=== PATIENT | male | born 1965 | race Caucasian/White ===

== ENCOUNTER 2018-04-22 07:02 | Emergency (ER) | payer BC ==
[2018-04-22 07:16] VITALS: BP 130/78
--- NOTE | 2018-04-22 07:36 | UC ---
Respiratory Complaint HPI - HPI Summary HPI Summary: dry cough x 5 days + nasal congestion, pnd, no fever, + chills, + wheezing, worse at nights , no sore throat, no sinus pain - History of Current Complaint Chief Complaint: UCRespiratory Stated Complaint: FLU SYMPTOMS Time Seen by Provider: 04/22/18 07:19 Hx Obtained From: Patient Onset/Duration: Gradual Onset, Lasting Days - 5, Still Present Timing: Constant Severity Initially: Moderate Severity Currently: Moderate Pain Intensity: 0 Pain Scale Used: 0-10 Numeric Character: Cough: Nonproductive Aggravating Factors: Exertion, Deep Breaths Alleviating Factors: Nothing Associated Signs And Symptoms: Positive: Chills, Wheezing, URI, Nasal Congestion. Negative: Dyspnea, Fever, Dizziness, Calf Pain, Calf Swelling, Sinus Discomfort - Allergies/Home Medications Allergies/Adverse Reactions: Allergies Allergy/AdvReac Type Severity Reaction Status Date / Time No Known Allergies Allergy Verified 04/22/18 07:09 Home Medications: Home Medications [id number] Es (Nf) [Excedrin Extra Strength 250-250-65 mg (NF)] 2 tab PO ONCE PRN 04/22/18 [History Confirmed 04/22/18] Phenol/Glycerin [Chloraseptic Max Sore Thr] 1 spr MT ONCE PRN 04/22/18 [History Confirmed 04/22/18] PMH/Surg Hx/FS Hx/Imm Hx Cardiovascular History: Hypertension - Surgical History Surgical History: Yes Surgery Procedure, Year, and Place: Hernia Repair. Cyst Removed from Chest - Family History Known Family History: Positive: Hypertension - Social History Alcohol Use: Occasionally Substance Use Type: None Smoking Status (MU): Former Smoker When Did the Patient Quit Smoking/Using Tobacco: 1983 Review of Systems Constitutional: Negative Skin: Negative Eyes: Negative ENT: Nasal Discharge Respiratory: Cough Is Patient Immunocompromised?: No All Other Systems Reviewed And Are Negative: Yes Physical Exam Triage Information Reviewed: Yes Appearance: Well-Appearing, No Pain Distress, Well-Nourished Vital Signs: Initial Vital Signs Temp 98.1 F 04/22/18 07:10 Pulse 59 04/22/18 07:10 Resp 16 04/22/18 07:10 BP 130/78 04/22/18 07:10 Pulse Ox 100 04/22/18 07:10 Vital Signs Reviewed: Yes Eyes: Positive: Conjunctiva Clear ENT: Positive: Normal ENT inspection, Hearing grossly normal, Pharynx normal, Nasal congestion Neck: Positive: Supple, Nontender, No Lymphadenopathy Respiratory: Positive: Chest non-tender, Lungs clear, Normal breath sounds Cardiovascular: Positive: RRR, No Murmur, Pulses Normal Abdominal Exam: Normal UC Diagnostic Evaluation - Laboratory O2 Sat by Pulse Oximetry: 100 Respiratory Course/Dx - Differential Dx/Diagnosis Provider Diagnoses: Viral Bronchitis Discharge - Sign-Out/Discharge Documenting (check all that apply): Discharge/Admit/Transfer - Discharge Plan Condition: Stable Disposition: HOME Prescriptions: Codeine Phosphate/Guaifenesin [Cheratussin AC] 10 ml PO Q8H PRN #120 ml MDD 30 ml PRN Reason: Cough Patient Education Materials: Acute Bronchitis (ED) Forms: *Work Release Referrals: Charlie Garcia MD [Primary Care Provider] - If Needed - Billing Disposition and Condition Condition: STABLE Disposition: Home
== END 2018-04-22 07:31 | disposition home or self-care (01) ==
LOC: UCCORT 07:02
DX: J20.8 Acute bronchitis due to other specified organisms (principal); I10 Essential (primary) hypertension; Z87.891 Personal history of nicotine dependence
CPT/HCPCS: 99212; G0463

== ENCOUNTER 2019-08-29 15:09 | Emergency (ER) | payer BC ==
[2019-08-29 15:47] VITALS: BP 142/93
--- NOTE | 2019-08-29 16:05 | UC ---
Skin Complaint HPI - HPI Summary HPI Summary: Patient is a 54-year-old male presenting with for left knee pain that began 6 days ago. States pain gradually progressed throughout the week and for the past 2 days he has noticed it has become swollen. Patient notes redness around the knee that has been spreading superiorly and inferiorly from the knee since this morning. He also notes swelling and pitting of his calf. Notes pain with flexion, extension, and ambulation. Rates 7/10. Patient states he is concern for infection but denies any trauma or injury to the knee. Denies anything like this in the past. Denies fevers but notes chills yesterday and today. Denies n/v. States he has been elevating and icing without relief. - History of Current Complaint Chief Complaint: UCLowerExtremity Stated Complaint: LT KNEE COMPLAINT Hx Obtained From: Patient, Family/[place] [place] [facility]s - Onset/Duration: Gradual Onset, Lasting Days Current Severity: Moderate Pain Intensity: 7 Pain Scale Used: 0-10 Numeric - Allergy/Home Medications Allergies/Adverse Reactions: Allergies Allergy/AdvReac Type Severity Reaction Status Date / Time No Known Allergies Allergy Verified 08/29/19 15:47 PMH/Surg Hx/FS Hx/Imm Hx Previously Healthy: Yes - Surgical History Surgical History: Yes Surgery Procedure, Year, and Place: Hernia Repair. Cyst Removed from Chest - Family History Known Family History: Positive: Hypertension, Non-Contributory - Social History Occupation: Employed Full-time Lives: With Family Alcohol Use: Occasionally Substance Use Type: None Smoking Status (MU): Former Smoker When Did the Patient Quit Smoking/Using Tobacco: 1983 Review of Systems All Other Systems Reviewed And Are Negative: Yes Constitutional: Positive: Chills. Negative: Fever Skin: Positive: Other - redness over anterior L knee Respiratory: Positive: Negative Cardiovascular: Positive: Negative Gastrointestinal: Positive: Negative. Negative: Vomiting, Nausea Musculoskeletal: Positive: Arthralgia - L knee, Edema - L knee. Negative: Calf Tenderness, Decreased ROM Neurological: Negative: Weakness, Paresthesia, Numbness Physical Exam Triage Information Reviewed: Yes Appearance: Well-Appearing, Well-Nourished, Pain Distress Vital Signs: Initial Vital Signs Temp 99.8 F 08/29/19 15:43 Pulse 74 08/29/19 15:43 Resp 16 08/29/19 15:43 BP 142/93 08/29/19 15:43 Pulse Ox 100 08/29/19 15:43 Vital Signs Reviewed: Yes Eyes: Positive: Conjunctiva Clear ENT: Positive: Hearing grossly normal Neck: Positive: Supple Respiratory Exam: Normal Respiratory: Positive: Lungs clear, Normal breath sounds, No respiratory distress Cardiovascular Exam: Normal Cardiovascular: Positive: RRR, Pulses Normal - normal pedal pulses b/l. normal popliteal pulses, Brisk Capillary Refill. Negative: Tachycardia Musculoskeletal: Positive: Strength Intact, ROM Limited @ - knee flexion and extension due to pain, Edema @ - L patella and pitting edema noted of lower leg , Other: - tenderness to palpation of anterior L knee Neurological: Positive: Alert Psychological: Positive: Age Appropriate Behavior Skin: Positive: Other - significant erythema and warmth noted over anterior L knee extending inferiorly to mid-marquez and superiorly to mid thigh. no drainage or abrasions noted. Course/Dx - Course Course Of Treatment: I instructed the patient to go straight to the emergency room for further testing and evaluation. Patient voiced understanding and agreed to have his drive him there now. - Differential Diagnoses - Skin Complaint Differential Diagnoses: Other - septic arthritis - Diagnoses Provider Diagnosis: Cellulitis, Swollen L knee Discharge ED - Sign-Out/Discharge Documenting (check all that apply): Patient Departure All imaging exams completed and their final reports reviewed: No Studies - Discharge Plan Condition: Stable Disposition: HOME Referrals: Charlie Garcia MD [Primary Care Provider] - Additional Instructions: The provider that evaluated you today thinks that you need additional testing that can be completed the emergency department. It is recommended that you go directly to emergency department for further evaluation. This evaluation included blood work or imaging. This testing will be directed and decided by the provider that evaluates you at the emergency department. If pain becomes worse, you feel lightheaded, you have uncontrolled vomiting, or you have any other concerns while you are being driven to emergency department as recommended to pullover and contact 911. - Billing Disposition and Condition Condition: STABLE Disposition: Home
== END 2019-08-29 16:20 | disposition home or self-care (01) ==
LOC: UCCORT 15:09
DX: L03.116 Cellulitis of left lower limb (principal); M25.462 Effusion, left knee; Z87.891 Personal history of nicotine dependence
CPT/HCPCS: 99212; G0463